=== PATIENT | female | born 1945 | race Caucasian/White ===

== ENCOUNTER 2017-02-04 09:36 | Outpatient (CLI) | payer MEDICARE, BC ==
--- NOTE | 2017-02-04 11:14 | PRG ---
DATE OF SERVICE: 02/04/2017 HISTORY: Ms. Annemarie Hess is a very pleasant 71-year-old who [facility] for sammy luation of lymphedema of the left upper extremity. The patient previously stated that she underwent mastectomy in 2003 in [place]. She stated that 5 years after mastectomy she developed lymphedema of the left upper extremity. She stated that she has previously been instructed in manual lymphatic d rainage and was also fitted with a sleeve in [place]. She stated that she orders her own sleeves onl ine. The patient was referred to the [facility] by Dr. Jacques at [facility]. The patient mo ruth to [place], [place] 9 months ago from [place], [place]. PHYSICAL EXAMINATION: VITAL SIGNS: Temperature 97.5, pulse 72, respirations 18, blood pressure 120/69 Accu-Chek 136. EXTREMITIES: Lymphedema of the left upper extremity is again noted on exam today. No open wounds o f the left upper extremity are present. No cellulitis of the left upper extremity is present. The circumferences of the left upper extremity are wrist 18.5 cm, forearm 34.0 cm, upper arm 38.0 cm. ASSESSMENT AND PLAN: 1. Post-surgical left upper extremity lymphedema. As stated above, the patient developed lymphedem a 5 years after undergoing mastectomy for breast carcinoma. in 2003 in [place]. Also as stated amparo hernandez, the patient has previously been instructed in [facility] and after being fitted with a sleeve in [place] orders her own sleeves online. Arrangements are being made for the initiation of in-home lymphedema treatment. Ms. Hess will be discharged from clinic today with followup on a p.r.n. basis. 2. History of breast carcinoma. 3. Diabetes mellitus. The patient's Accu-Chek in clinic today is 136. 4. Hypertension. 5. Congestive heart failure secondary to hyperaldosteronism. 6. Transient ischemic attack x1. 7. Gastroesophageal reflux disease. 8. Diverticulosis. 9. Renal insufficiency.
== END 2017-02-04 09:37 | disposition home or self-care (01) ==
LOC: WCC 09:36
PROVIDERS: ATTEND Family Medicine
DX: I97.2 Postmastectomy lymphedema syndrome (principal); E11.9 Type 2 diabetes mellitus without complications; N28.9 Disorder of kidney and ureter, unspecified; I11.0 Hypertensive heart disease with heart failure; I50.9 Heart failure, unspecified; K21.9 Gastro-esophageal reflux disease without esophagitis; K57.90 Diverticulosis of intestine, part unspecified, without perforation or abscess without bleeding; G45.9 Transient cerebral ischemic attack, unspecified
CPT/HCPCS: 97139; 97602; G0463; 99213

== ENCOUNTER 2017-08-26 12:28 | Outpatient (CLI) | payer MEDICARE, OTHER ==
--- NOTE | 2017-08-26 15:35 | MRI ---
MRI LUMBAR SPINE WITHOUT CONTRAST: Multiplanar, multisequential imaging lumbar spine obtained. INDICATION: Low back pain. Radiation to the right lower extremity. FINDINGS: The lumbar vertebrae maintain height and alignment. There are degenerative disk changes. Loss of di sk space is most pronounced at the L3-4 level. Mild loss of disk space at L4-5. At L1-2, mild disk bulge without protrusion. Mild facet hypertrophy. No central canal or foraminal stenosis. At L2-3, minimal disk bulge. Mild facet hypertrophy. No central canal or foraminal stenosis. At L3-4, mild disk bulge. There is an asymmetric bulge/protrusion that extends into the foramen on t he left and this appears to contact and may displace the exiting left L3 nerve root. There is modera te facet hypertrophy without significant central canal stenosis. At L4-5, a mild broad-based disk bulge flattens the anterior thecal sac. Facet arthrosis with mild f acet hypertrophy. Mild central canal stenosis. There is right foraminal encroachment due to asymmet teo disk bulge extending to the right and the associated facet hypertrophy. At L5-S1, minimal disk bulge. Facet arthrosis and mild hypertrophy. No central canal or foraminal s tenosis. IMPRESSION: 1. Asymmetric disk protrusion into the foramen on the left at L3-4. 2. Mild central canal stenosis at L4-5. POS: MARIN
== END 2017-08-26 12:29 | disposition home or self-care (01) ==
LOC: SCSMRI 12:28
PROVIDERS: ATTEND Orthopaedic Surgery
DX: M54.5 Low back pain (principal); M51.86 Other intervertebral disc disorders, lumbar region; M48.061 Spinal stenosis, lumbar region without neurogenic claudication
CPT/HCPCS: 72148